=== PATIENT | female | born 1975 | race Caucasian/White ===

== ENCOUNTER → 2019-10-24 15:07 | Outpatient (BNVA) | payer MEDICARE, OTHER, SELFPAY | PROVIDERS: Family Provider Family Medicine; PCP Family Medicine; Visit Provider Nurse Practitioner | DX: M47.816 Spondylosis without myelopathy or radiculopathy, lumbar region (principal); E11.42 Type 2 diabetes mellitus with diabetic polyneuropathy; Z79.891 Long term (current) use of opiate analgesic | CPT/HCPCS: 99213; 99214 ==

== ENCOUNTER → 2019-10-28 08:44 | Outpatient (BNVA) | payer MEDICARE, OTHER, SELFPAY | PROVIDERS: Family Provider Family Medicine; PCP Family Medicine; Visit Provider Nurse Practitioner | DX: F43.12 Post-traumatic stress disorder, chronic (principal); F17.210 Nicotine dependence, cigarettes, uncomplicated | CPT/HCPCS: 99213 ==

== ENCOUNTER → 2019-11-19 09:51 | Outpatient (BNVA) | payer MEDICARE, OTHER, SELFPAY | PROVIDERS: Family Provider Family Medicine; PCP Family Medicine; Visit Provider Social Worker Clinical | DX: F43.12 Post-traumatic stress disorder, chronic (principal); F33.1 Major depressive disorder, recurrent, moderate | CPT/HCPCS: 90791 ==

== ENCOUNTER → 2019-12-04 08:55 | Outpatient (BNVA) | payer MEDICARE, OTHER, SELFPAY | PROVIDERS: Family Provider Family Medicine; PCP Family Medicine; Visit Provider Social Worker Clinical | DX: F43.12 Post-traumatic stress disorder, chronic (principal); F33.2 Major depressive disorder, recurrent severe without psychotic features; M47.816 Spondylosis without myelopathy or radiculopathy, lumbar region | CPT/HCPCS: 90834; 64635; 64636; 77003; J1030; J2001 ==

== ENCOUNTER → 2019-12-18 08:49 | Outpatient (BNVA) | payer MEDICARE, OTHER, SELFPAY | PROVIDERS: Family Provider Family Medicine; PCP Family Medicine; Visit Provider Social Worker Clinical | DX: F43.12 Post-traumatic stress disorder, chronic (principal); F33.1 Major depressive disorder, recurrent, moderate | CPT/HCPCS: 90834 ==

== ENCOUNTER → 2019-12-29 08:28 | Outpatient (BNVA) | payer MEDICARE, OTHER, SELFPAY | PROVIDERS: Family Provider Family Medicine; PCP Family Medicine; Visit Provider Social Worker Clinical | DX: F43.12 Post-traumatic stress disorder, chronic (principal); F33.2 Major depressive disorder, recurrent severe without psychotic features | CPT/HCPCS: 90834 ==

== ENCOUNTER → 2020-01-06 14:36 | Outpatient (BNVA) | payer MEDICARE, OTHER, SELFPAY | PROVIDERS: Family Provider Family Medicine; PCP Family Medicine; Visit Provider Nurse Practitioner | DX: G89.29 Other chronic pain (principal); M47.816 Spondylosis without myelopathy or radiculopathy, lumbar region; M54.10 Radiculopathy, site unspecified; Z79.891 Long term (current) use of opiate analgesic | CPT/HCPCS: 99214 ==

== ENCOUNTER 2020-01-19 06:00 | Outpatient (RCR) | payer MEDICARE, OTHER, SELFPAY | END 2020-02-12 23:59 | disposition home or self-care (01) | LOC: SPT 06:00 | PROVIDERS: Family Provider Family Medicine; PCP Family Medicine; Referring Provider Nurse Practitioner; Visit Provider Nurse Practitioner | DX: M54.9 Dorsalgia, unspecified (principal) | CPT/HCPCS: 97110; 97161; G0283 ==

== ENCOUNTER → 2020-01-20 08:22 | Outpatient (BNVA) | payer MEDICARE, OTHER, SELFPAY | PROVIDERS: Family Provider Family Medicine; PCP Family Medicine; Visit Provider Nurse Practitioner | DX: F43.12 Post-traumatic stress disorder, chronic (principal) | CPT/HCPCS: 99213 ==

== ENCOUNTER → 2020-01-28 10:07 | Outpatient (BNVA) | payer MEDICARE, OTHER, SELFPAY | PROVIDERS: Family Provider Family Medicine; PCP Family Medicine; Visit Provider Social Worker Clinical | DX: F43.12 Post-traumatic stress disorder, chronic (principal) | CPT/HCPCS: 90834 ==

== ENCOUNTER 2020-02-13 06:00 | Outpatient (RCR) | payer MEDICARE, OTHER, SELFPAY | END 2020-03-14 23:59 | disposition home or self-care (01) | LOC: SPT 06:00 | PROVIDERS: PCP Family Medicine; Referring Provider Nurse Practitioner; Visit Provider Nurse Practitioner | DX: M54.32 Sciatica, left side (principal); M54.9 Dorsalgia, unspecified | CPT/HCPCS: 97110 ==

== ENCOUNTER 2020-03-15 06:00 | Outpatient (RCR) | payer MEDICARE, OTHER, SELFPAY | END 2020-04-13 23:59 | disposition home or self-care (01) | LOC: SPT 06:00 | PROVIDERS: PCP Family Medicine; Visit Provider Nurse Practitioner | DX: M54.9 Dorsalgia, unspecified (principal) | CPT/HCPCS: 97110; 97113 ==

== ENCOUNTER → 2020-03-18 09:53 | Outpatient (BNVA) | payer MEDICARE, OTHER, SELFPAY | PROVIDERS: PCP Family Medicine; Visit Provider Family Medicine | DX: I10 Essential (primary) hypertension (principal); E78.2 Mixed hyperlipidemia; E11.42 Type 2 diabetes mellitus with diabetic polyneuropathy; E11.9 Type 2 diabetes mellitus without complications; G43.701 Chronic migraine without aura, not intractable, with status migrainosus | CPT/HCPCS: 80053; 80061; 82044; 83036; 85025 ==

== ENCOUNTER → 2020-04-02 11:25 | Outpatient (BNVA) | payer MEDICARE, OTHER, SELFPAY | PROVIDERS: PCP Family Medicine; Visit Provider Anesthesiology | DX: G89.29 Other chronic pain (principal); M54.42 Lumbago with sciatica, left side; M47.816 Spondylosis without myelopathy or radiculopathy, lumbar region; M54.10 Radiculopathy, site unspecified; M54.9 Dorsalgia, unspecified; Z79.891 Long term (current) use of opiate analgesic | CPT/HCPCS: 99213; 99214 ==

== ENCOUNTER 2020-04-14 06:00 | Outpatient (RCR) | payer MEDICARE, OTHER, SELFPAY | END 2020-05-14 23:59 | disposition home or self-care (01) | LOC: SPT 06:00 | PROVIDERS: PCP Family Medicine; Visit Provider Nurse Practitioner | DX: M54.9 Dorsalgia, unspecified (principal) | CPT/HCPCS: 97110 ==

== ENCOUNTER → 2020-04-21 07:29 | Outpatient (BNVA) | payer MEDICARE, OTHER, SELFPAY | PROVIDERS: PCP Family Medicine; Visit Provider Nurse Practitioner | DX: F43.12 Post-traumatic stress disorder, chronic (principal); F41.1 Generalized anxiety disorder | CPT/HCPCS: 99214 ==

== ENCOUNTER 2020-05-20 13:22 | Outpatient (CLI) | payer MEDICARE, OTHER, SELFPAY ==
--- NOTE | 2020-05-20 13:30 | XR_ITS ---
WS: [id number] HIP WITH PELVIS RIGHT TECHNIQUE: 3 views of the right hip with pelvis CLINICAL INFORMATION: acute right hip pain COMPARISON: None. FINDINGS: Right hip is normal in appearance. No acute fractures. Normal right pubic rami. XR/XR hip RT 2-3V wo/w pel* [id number] IMPRESSION: Normal right hip
--- NOTE | 2020-05-20 14:14 | MM_ITS ---
WS: [id number] SCREENING DIGITAL MAMMOGRAM WITH CAD HISTORY: SCREENING COMPARISON: 12/30/2018 and 03/05/2018 Bilateral CC and MLO views submitted. Computer aided detection analyzed. Breast composition: There are scattered areas of fibroglandular density. No suspicious masses, microc alcifications or architectural distortion. MM/[place] [id number] IMPRESSION: BI-RADS: 1-Negative FOLLOW UP: 1 Year Follow-up
== END 2020-05-20 13:23 | disposition home or self-care (01) ==
LOC: RADSHAW 13:27
PROVIDERS: PCP Family Medicine; Visit Provider Family Medicine
DX: Z12.31 Encounter for screening mammogram for malignant neoplasm of breast (principal); M25.551 Pain in right hip; E11.42 Type 2 diabetes mellitus with diabetic polyneuropathy
CPT/HCPCS: 73502; 77067; 80053

== ENCOUNTER → 2020-06-16 07:48 | Outpatient (BNVA) | payer MEDICARE, OTHER, SELFPAY | PROVIDERS: PCP Family Medicine; Visit Provider Nurse Practitioner | DX: F43.12 Post-traumatic stress disorder, chronic (principal); F70 Mild intellectual disabilities | CPT/HCPCS: 99213 ==

== ENCOUNTER → 2020-06-22 08:46 | Outpatient (BNVA) | payer MEDICARE, OTHER, SELFPAY | PROVIDERS: PCP Family Medicine; Visit Provider Nurse Practitioner | DX: G89.29 Other chronic pain (principal); M54.41 Lumbago with sciatica, right side; M54.42 Lumbago with sciatica, left side; M54.10 Radiculopathy, site unspecified; M54.9 Dorsalgia, unspecified; Z79.891 Long term (current) use of opiate analgesic | CPT/HCPCS: 99213 ==

== ENCOUNTER → 2020-06-24 14:17 | Outpatient (BNVA) | payer MEDICARE, OTHER, SELFPAY | PROVIDERS: PCP Family Medicine; Referring Provider Family Medicine; Visit Provider Specialist | DX: G43.701 Chronic migraine without aura, not intractable, with status migrainosus (principal) | CPT/HCPCS: G0463 ==

== ENCOUNTER → 2020-08-18 07:34 | Outpatient (BNVA) | payer MEDICARE, OTHER, SELFPAY | PROVIDERS: PCP Family Medicine; Visit Provider Nurse Practitioner | DX: F43.12 Post-traumatic stress disorder, chronic (principal) | CPT/HCPCS: 99213 ==

== ENCOUNTER → 2020-08-24 10:03 | Outpatient (BNVA) | payer MEDICARE, OTHER, SELFPAY | PROVIDERS: PCP Family Medicine; Visit Provider Family Medicine | DX: E11.42 Type 2 diabetes mellitus with diabetic polyneuropathy (principal) | CPT/HCPCS: 80053; 83036; 85025 ==

== ENCOUNTER → 2020-08-25 09:18 | Outpatient (BNVA) | payer MEDICARE, OTHER, SELFPAY | PROVIDERS: PCP Family Medicine; Visit Provider Specialist | DX: G43.711 Chronic migraine without aura, intractable, with status migrainosus (principal); Z87.891 Personal history of nicotine dependence | CPT/HCPCS: 99204 ==

== ENCOUNTER 2020-09-01 13:39 | Outpatient (CLI) | payer MEDICARE, OTHER, SELFPAY ==
--- NOTE | 2020-09-01 13:48 | MR_ITS ---
WS: [id number] MRI HEAD WITHOUT CONTRAST TECHNIQUE: Sagittal T1, T2 axial, T2 axial FLAIR, axial and coronal T1 images, axial susceptibility w eighted imaging, axial diffusion weighted images, and coronal T2 images were obtained. CLINICAL INFORMATION: CHRONIC MIGRAINE WITHOUT AURA COMPARISON: MRI 4 13,015 FINDINGS: Images moderately degraded by motion artifact. No restricted diffusion to suggest acute ischemia. Ventricular system and basal cisterns are patent. A few small foci of T2 hyperintensity in the supratentorial white matter nonspecific in a patient thi s age but can be seen with migraine headaches. Mild parenchymal volume loss. Normal vascular flow voids at the skull base. No extra-axial fluid collections. Mild mucosal thickeni ng paranasal sinuses. Mastoid air cells are well aerated. No hemosiderin on susceptibly weighted imag es. Mild symmetric atrophy involving the temporal lobes and hippocampal formations. Normal optic jodi sm and pituitary infundibulum. No other significant findings. MR/MR head wo con* [id number] IMPRESSION: 1. Some images degraded by patient motion. 2. No restricted diffusion to suggest acute ischemia. 3. A few 2-3 small foci of T2 hyperintensity in the subcortical and periventri cular white matter nonspecific but can be seen with migraine headaches. This is of doubtful clinical significance. 4. Mild parenchymal volume loss. 5. Paranasal sinuses and mastoid air cells are well aerated. 6. No hemosiderin on susceptibly weighted images. 7. Mild symmetric atrophy involving the temporal lobes and hippocampal formati ons.
== END 2020-09-01 13:40 | disposition home or self-care (01) ==
LOC: RADWPI 13:47
PROVIDERS: PCP Family Medicine; Visit Provider Specialist
DX: G43.711 Chronic migraine without aura, intractable, with status migrainosus (principal); G31.9 Degenerative disease of nervous system, unspecified
CPT/HCPCS: 70551

== ENCOUNTER → 2020-09-13 08:29 | Outpatient (BNVA) | payer MEDICARE, OTHER, SELFPAY | PROVIDERS: PCP Family Medicine; Visit Provider Social Worker Clinical | DX: F43.12 Post-traumatic stress disorder, chronic (principal) | CPT/HCPCS: 90834 ==

== ENCOUNTER → 2020-09-14 08:56 | Outpatient (BNVA) | payer MEDICARE, OTHER, SELFPAY | PROVIDERS: PCP Family Medicine; Visit Provider Nurse Practitioner | DX: G89.29 Other chronic pain (principal); M47.816 Spondylosis without myelopathy or radiculopathy, lumbar region; M54.9 Dorsalgia, unspecified; M54.42 Lumbago with sciatica, left side; M54.41 Lumbago with sciatica, right side; M54.10 Radiculopathy, site unspecified; G43.701 Chronic migraine without aura, not intractable, with status migrainosus; Z79.891 Long term (current) use of opiate analgesic | CPT/HCPCS: 99213 ==

== ENCOUNTER → 2020-09-30 08:12 | Outpatient (BNVA) | payer MEDICARE, OTHER, SELFPAY | PROVIDERS: PCP Family Medicine; Visit Provider Social Worker Clinical | DX: F43.12 Post-traumatic stress disorder, chronic (principal) | CPT/HCPCS: 90834 ==

== ENCOUNTER → 2020-10-19 10:22 | Outpatient (BNVA) | payer MEDICARE, OTHER, SELFPAY | PROVIDERS: PCP Family Medicine; Visit Provider Family Medicine | DX: N28.9 Disorder of kidney and ureter, unspecified (principal) | CPT/HCPCS: 80048 ==

== ENCOUNTER → 2020-10-28 08:19 | Outpatient (BNVA) | payer MEDICARE, OTHER, SELFPAY | PROVIDERS: PCP Family Medicine; Visit Provider Social Worker Clinical | DX: F43.12 Post-traumatic stress disorder, chronic (principal) | CPT/HCPCS: 90834 ==

== ENCOUNTER → 2020-11-11 08:28 | Outpatient (BNVA) | payer MEDICARE, OTHER, SELFPAY | PROVIDERS: PCP Family Medicine; Visit Provider Social Worker Clinical | DX: F43.12 Post-traumatic stress disorder, chronic (principal) | CPT/HCPCS: 90834 ==

== ENCOUNTER → 2020-11-17 07:58 | Outpatient (BNVA) | payer MEDICARE, OTHER, SELFPAY | PROVIDERS: PCP Family Medicine; Visit Provider Nurse Practitioner | DX: F43.12 Post-traumatic stress disorder, chronic (principal); F17.211 Nicotine dependence, cigarettes, in remission | CPT/HCPCS: 99214 ==

== ENCOUNTER → 2020-12-03 08:54 | Outpatient (BNVA) | payer MEDICARE, OTHER, SELFPAY | PROVIDERS: PCP Family Medicine; Visit Provider Nurse Practitioner | DX: G89.29 Other chronic pain (principal); M47.816 Spondylosis without myelopathy or radiculopathy, lumbar region; M54.9 Dorsalgia, unspecified; M79.7 Fibromyalgia; G57.93 Unspecified mononeuropathy of bilateral lower limbs; G43.701 Chronic migraine without aura, not intractable, with status migrainosus; F17.211 Nicotine dependence, cigarettes, in remission; Z79.891 Long term (current) use of opiate analgesic; Z71.6 Tobacco abuse counseling | CPT/HCPCS: 99213 ==

== ENCOUNTER → 2020-12-13 13:41 | Outpatient (BNVA) | payer MEDICARE, OTHER, SELFPAY | PROVIDERS: PCP Family Medicine; Visit Provider Anesthesiology Pain Medicine | DX: G89.29 Other chronic pain (principal); M47.816 Spondylosis without myelopathy or radiculopathy, lumbar region; M54.9 Dorsalgia, unspecified; E11.42 Type 2 diabetes mellitus with diabetic polyneuropathy | CPT/HCPCS: 64635; 64636; J1030 ==

== ENCOUNTER → 2020-12-14 08:32 | Outpatient (BNVA) | payer MEDICARE, OTHER, SELFPAY | PROVIDERS: PCP Family Medicine; Visit Provider Social Worker Clinical | DX: F43.12 Post-traumatic stress disorder, chronic (principal) | CPT/HCPCS: 90832 ==

== ENCOUNTER → 2020-12-30 10:50 | Outpatient (BNVA) | payer MEDICARE, OTHER, SELFPAY | PROVIDERS: PCP Family Medicine; Visit Provider Nurse Practitioner | DX: G89.29 Other chronic pain (principal); M47.816 Spondylosis without myelopathy or radiculopathy, lumbar region; M54.9 Dorsalgia, unspecified; M79.7 Fibromyalgia; G57.93 Unspecified mononeuropathy of bilateral lower limbs; M70.62 Trochanteric bursitis, left hip; Y93.9 Activity, unspecified; F17.211 Nicotine dependence, cigarettes, in remission; Z79.891 Long term (current) use of opiate analgesic | CPT/HCPCS: 99214 ==

== ENCOUNTER → 2020-12-31 08:50 | Outpatient (BNVA) | payer MEDICARE, OTHER, SELFPAY | PROVIDERS: PCP Family Medicine; Visit Provider Social Worker Clinical | DX: F43.12 Post-traumatic stress disorder, chronic (principal); F33.2 Major depressive disorder, recurrent severe without psychotic features | CPT/HCPCS: 90834 ==

== ENCOUNTER → 2021-01-18 08:56 | Outpatient (BNVA) | payer MEDICARE, OTHER, SELFPAY | PROVIDERS: PCP Family Medicine; Visit Provider Social Worker Clinical | DX: F43.12 Post-traumatic stress disorder, chronic (principal) | CPT/HCPCS: 90834 ==

== ENCOUNTER → 2021-01-19 09:42 | Outpatient (BNVA) | payer MEDICARE, OTHER, SELFPAY | PROVIDERS: PCP Family Medicine; Visit Provider Nurse Practitioner | DX: F43.12 Post-traumatic stress disorder, chronic (principal) | CPT/HCPCS: 99214 ==

== ENCOUNTER → 2021-02-03 08:58 | Outpatient (BNVA) | payer MEDICARE, OTHER, SELFPAY | PROVIDERS: PCP Family Medicine; Visit Provider Anesthesiology | DX: M70.62 Trochanteric bursitis, left hip (principal); Y93.9 Activity, unspecified | CPT/HCPCS: 20610; 77002; J1030; J3490 ==

== ENCOUNTER → 2021-02-14 08:46 | Outpatient (BNVA) | payer MEDICARE, OTHER, SELFPAY | PROVIDERS: PCP Family Medicine; Visit Provider Social Worker Clinical | DX: F43.12 Post-traumatic stress disorder, chronic (principal) | CPT/HCPCS: 90834 ==

== ENCOUNTER → 2021-02-21 10:17 | Outpatient (BNVA) | payer MEDICARE, OTHER, SELFPAY | PROVIDERS: PCP Family Medicine; Visit Provider Family Medicine | DX: E11.42 Type 2 diabetes mellitus with diabetic polyneuropathy (principal); E78.2 Mixed hyperlipidemia; R10.13 Epigastric pain; I10 Essential (primary) hypertension | CPT/HCPCS: 80053; 80061; 81015; 82043; 83036 ==

== ENCOUNTER → 2021-03-02 08:03 | Outpatient (BNVA) | payer MEDICARE, OTHER, SELFPAY | PROVIDERS: PCP Family Medicine; Visit Provider Social Worker Clinical | DX: F43.12 Post-traumatic stress disorder, chronic (principal) | CPT/HCPCS: 90834 ==

== ENCOUNTER → 2021-03-08 09:55 | Outpatient (BNVA) | payer MEDICARE, OTHER, SELFPAY | PROVIDERS: PCP Family Medicine; Visit Provider Specialist | DX: G43.701 Chronic migraine without aura, not intractable, with status migrainosus (principal); S51.859A Open bite of unspecified forearm, initial encounter; W55.01XA Bitten by cat, initial encounter; Z87.891 Personal history of nicotine dependence | CPT/HCPCS: 99214 ==

== ENCOUNTER → 2021-03-18 08:55 | Outpatient (BNVA) | payer MEDICARE, OTHER, SELFPAY | PROVIDERS: PCP Family Medicine; Visit Provider Social Worker Clinical | DX: F43.12 Post-traumatic stress disorder, chronic (principal) | CPT/HCPCS: 90834 ==

== ENCOUNTER → 2021-03-23 09:12 | Outpatient (BNVA) | payer MEDICARE, OTHER, SELFPAY | PROVIDERS: PCP Family Medicine; Visit Provider Nurse Practitioner | DX: F43.12 Post-traumatic stress disorder, chronic (principal) | CPT/HCPCS: 99214 ==

== ENCOUNTER → 2021-03-29 08:01 | Outpatient (BNVA) | payer MEDICARE, OTHER, SELFPAY | PROVIDERS: PCP Family Medicine; Visit Provider Anesthesiology | DX: G89.29 Other chronic pain (principal); M47.816 Spondylosis without myelopathy or radiculopathy, lumbar region; M54.9 Dorsalgia, unspecified; F17.211 Nicotine dependence, cigarettes, in remission; Z79.891 Long term (current) use of opiate analgesic; Z79.1 Long term (current) use of non-steroidal anti-inflammatories (NSAID) | CPT/HCPCS: 99213 ==

== ENCOUNTER → 2021-04-11 11:49 | Outpatient (BNVA) | payer MEDICARE, OTHER, SELFPAY | PROVIDERS: PCP Family Medicine; Visit Provider Social Worker Clinical | DX: F43.12 Post-traumatic stress disorder, chronic (principal) | CPT/HCPCS: 90834 ==

== ENCOUNTER → 2021-04-27 10:55 | Outpatient (BNVA) | payer MEDICARE, OTHER, SELFPAY | PROVIDERS: PCP Family Medicine; Visit Provider Nurse Practitioner Family | DX: Z20.822 Contact with and (suspected) exposure to COVID-19 (principal) | CPT/HCPCS: 87635 ==

== ENCOUNTER → 2021-04-28 10:06 | Outpatient (BNVA) | payer MEDICARE, OTHER, SELFPAY | PROVIDERS: PCP Family Medicine; Visit Provider Social Worker Clinical | DX: F43.12 Post-traumatic stress disorder, chronic (principal) | CPT/HCPCS: 90832 ==

== ENCOUNTER → 2021-05-13 08:04 | Outpatient (BNVA) | payer MEDICARE, OTHER, SELFPAY | PROVIDERS: PCP Family Medicine; Visit Provider Social Worker Clinical | DX: F43.12 Post-traumatic stress disorder, chronic (principal) | CPT/HCPCS: 90834 ==

== ENCOUNTER 2021-05-23 07:09 | Outpatient (CLI) | payer MEDICARE, OTHER, SELFPAY ==
--- NOTE | 2021-05-23 07:18 | MM_ITS ---
WS: [id number] SCREENING DIGITAL MAMMOGRAM WITH CAD HISTORY: SCREENING COMPARISON: 05/20/2020 and 12/19/2017 Bilateral CC and MLO views submitted. Computer aided detection analyzed. Breast composition: There are scattered areas of fibroglandular density. No suspicious masses, microc alcifications or architectural distortion. MM/[place] [id number] IMPRESSION: BI-RADS: 1-Negative FOLLOW UP: 1 Year Follow-up
== END 2021-05-23 07:10 | disposition home or self-care (01) ==
LOC: RADSHAW 07:14
PROVIDERS: PCP Family Medicine; Visit Provider Family Medicine
DX: Z12.31 Encounter for screening mammogram for malignant neoplasm of breast (principal)
CPT/HCPCS: 77067

== ENCOUNTER → 2021-05-25 07:10 | Outpatient (BNVA) | payer MEDICARE, OTHER, SELFPAY | PROVIDERS: PCP Family Medicine; Visit Provider Nurse Practitioner | DX: F43.12 Post-traumatic stress disorder, chronic (principal) | CPT/HCPCS: 99214 ==

== ENCOUNTER → 2021-05-26 10:44 | Outpatient (BNVA) | payer MEDICARE, OTHER, SELFPAY | PROVIDERS: PCP Family Medicine; Visit Provider Social Worker Clinical | DX: F43.12 Post-traumatic stress disorder, chronic (principal) | CPT/HCPCS: 90834 ==

== ENCOUNTER → 2021-06-14 08:47 | Outpatient (BNVA) | payer MEDICARE, OTHER, SELFPAY | PROVIDERS: PCP Family Medicine; Visit Provider Social Worker Clinical | DX: F43.12 Post-traumatic stress disorder, chronic (principal) | CPT/HCPCS: 90834 ==

== ENCOUNTER → 2021-06-21 08:33 | Outpatient (BNVA) | payer MEDICARE, OTHER, SELFPAY | PROVIDERS: PCP Family Medicine; Visit Provider Nurse Practitioner | DX: G89.29 Other chronic pain (principal); M47.816 Spondylosis without myelopathy or radiculopathy, lumbar region; M79.7 Fibromyalgia; M25.552 Pain in left hip; G57.93 Unspecified mononeuropathy of bilateral lower limbs; E11.42 Type 2 diabetes mellitus with diabetic polyneuropathy; F17.211 Nicotine dependence, cigarettes, in remission; Z79.891 Long term (current) use of opiate analgesic | CPT/HCPCS: 99213 ==

== ENCOUNTER → 2021-06-23 07:58 | Outpatient (BNVA) | payer MEDICARE, OTHER, SELFPAY | PROVIDERS: PCP Family Medicine; Visit Provider Social Worker Clinical | DX: F43.12 Post-traumatic stress disorder, chronic (principal) | CPT/HCPCS: 90834 ==

== ENCOUNTER → 2021-07-06 09:02 | Outpatient (BNVA) | payer MEDICARE, OTHER, SELFPAY | PROVIDERS: PCP Family Medicine; Visit Provider Social Worker Clinical | DX: F43.12 Post-traumatic stress disorder, chronic (principal) | CPT/HCPCS: 90834 ==

== ENCOUNTER → 2021-07-25 08:51 | Outpatient (BNVA) | payer MEDICARE, OTHER, SELFPAY | PROVIDERS: PCP Family Medicine; Visit Provider Social Worker Clinical | DX: F43.12 Post-traumatic stress disorder, chronic (principal) | CPT/HCPCS: 90834 ==

== ENCOUNTER → 2021-08-08 08:15 | Outpatient (BNVA) | payer MEDICARE, OTHER, SELFPAY | PROVIDERS: PCP Family Medicine; Visit Provider Social Worker Clinical | DX: F43.12 Post-traumatic stress disorder, chronic (principal) | CPT/HCPCS: 90834 ==

== ENCOUNTER → 2021-08-09 10:27 | Outpatient (BNVA) | payer MEDICARE, OTHER, SELFPAY | PROVIDERS: PCP Family Medicine; Visit Provider Family Medicine | DX: L65.9 Nonscarring hair loss, unspecified (principal) | CPT/HCPCS: 84443 ==

== ENCOUNTER → 2021-08-23 08:37 | Outpatient (BNVA) | payer MEDICARE, OTHER, SELFPAY | PROVIDERS: PCP Family Medicine; Visit Provider Social Worker Clinical | DX: F43.12 Post-traumatic stress disorder, chronic (principal) | CPT/HCPCS: 90834 ==

== ENCOUNTER → 2021-08-24 07:22 | Outpatient (BNVA) | payer MEDICARE, OTHER, SELFPAY | PROVIDERS: PCP Family Medicine; Visit Provider Nurse Practitioner | DX: F43.12 Post-traumatic stress disorder, chronic (principal) | CPT/HCPCS: 99214 ==

== ENCOUNTER → 2021-09-21 08:51 | Outpatient (BNVA) | payer MEDICARE, OTHER, SELFPAY | PROVIDERS: PCP Family Medicine; Visit Provider Social Worker Clinical | DX: F43.12 Post-traumatic stress disorder, chronic (principal); F33.1 Major depressive disorder, recurrent, moderate | CPT/HCPCS: 90791 ==

== ENCOUNTER → 2021-10-19 09:57 | Outpatient (BNVA) | payer MEDICARE, OTHER, SELFPAY | PROVIDERS: PCP Family Medicine; Visit Provider Social Worker Clinical | DX: F43.12 Post-traumatic stress disorder, chronic (principal) | CPT/HCPCS: 90834 ==

== ENCOUNTER → 2021-11-02 13:06 | Outpatient (BNVA) | payer MEDICARE, OTHER, SELFPAY | PROVIDERS: PCP Family Medicine; Visit Provider Anesthesiology | DX: G89.29 Other chronic pain (principal); M47.816 Spondylosis without myelopathy or radiculopathy, lumbar region; G43.711 Chronic migraine without aura, intractable, with status migrainosus; F17.211 Nicotine dependence, cigarettes, in remission; Z79.1 Long term (current) use of non-steroidal anti-inflammatories (NSAID) | CPT/HCPCS: 99213 ==

== ENCOUNTER → 2021-11-04 07:12 | Outpatient (BNVA) | payer MEDICARE, OTHER, SELFPAY | PROVIDERS: PCP Family Medicine; Visit Provider Social Worker Clinical | DX: F43.12 Post-traumatic stress disorder, chronic (principal) | CPT/HCPCS: 90834 ==

== ENCOUNTER → 2021-11-07 09:30 | Outpatient (BNVA) | payer MEDICARE, OTHER, SELFPAY | PROVIDERS: PCP Family Medicine; Visit Provider Family Medicine | DX: E78.2 Mixed hyperlipidemia (principal); E11.42 Type 2 diabetes mellitus with diabetic polyneuropathy; I10 Essential (primary) hypertension | CPT/HCPCS: 80053; 80061; 85025 ==

== ENCOUNTER → 2021-11-08 13:14 | Outpatient (BNVA) | payer MEDICARE, OTHER, SELFPAY | PROVIDERS: PCP Family Medicine; Visit Provider Anesthesiology Pain Medicine | DX: G89.29 Other chronic pain (principal); Z87.891 Personal history of nicotine dependence | CPT/HCPCS: 64635; 64636; J1030 ==

== ENCOUNTER → 2021-11-15 11:39 | Outpatient (BNVA) | payer MEDICARE, OTHER, SELFPAY | PROVIDERS: PCP Family Medicine; Visit Provider Family Medicine | DX: E11.42 Type 2 diabetes mellitus with diabetic polyneuropathy (principal); I10 Essential (primary) hypertension | CPT/HCPCS: 83036; 85025 ==

== ENCOUNTER → 2021-11-16 06:59 | Outpatient (BNVA) | payer MEDICARE, OTHER, SELFPAY | PROVIDERS: PCP Family Medicine; Visit Provider Nurse Practitioner | DX: F43.12 Post-traumatic stress disorder, chronic (principal) | CPT/HCPCS: 99214 ==

== ENCOUNTER → 2021-11-22 08:48 | Outpatient (BNVA) | payer MEDICARE, OTHER, SELFPAY | PROVIDERS: PCP Family Medicine; Visit Provider Social Worker Clinical | DX: F43.12 Post-traumatic stress disorder, chronic (principal) | CPT/HCPCS: 90834 ==

== ENCOUNTER → 2021-12-21 08:59 | Outpatient (BNVA) | payer MEDICARE, OTHER, SELFPAY | PROVIDERS: PCP Family Medicine; Visit Provider Social Worker Clinical | DX: F43.12 Post-traumatic stress disorder, chronic (principal) | CPT/HCPCS: 90834 ==

== ENCOUNTER → 2022-01-10 11:30 | Outpatient (BNVA) | payer MEDICARE, OTHER, SELFPAY | PROVIDERS: PCP Family Medicine; Visit Provider Internal Medicine Cardiovascular Disease | DX: R06.02 Shortness of breath (principal); I10 Essential (primary) hypertension; G47.33 Obstructive sleep apnea (adult) (pediatric); E78.2 Mixed hyperlipidemia; Z87.891 Personal history of nicotine dependence | CPT/HCPCS: 99214 ==

== ENCOUNTER → 2022-01-11 07:31 | Outpatient (BNVA) | payer MEDICARE, OTHER, SELFPAY | PROVIDERS: PCP Family Medicine; Visit Provider Nurse Practitioner | DX: F43.12 Post-traumatic stress disorder, chronic (principal) | CPT/HCPCS: 99214 ==

== ENCOUNTER → 2022-01-13 09:56 | Outpatient (BNVA) | payer MEDICARE, OTHER, SELFPAY | PROVIDERS: PCP Family Medicine; Visit Provider Social Worker Clinical | DX: F43.12 Post-traumatic stress disorder, chronic (principal) | CPT/HCPCS: 90834 ==

== ENCOUNTER → 2022-01-23 07:45 | Outpatient (BNVA) | payer MEDICARE, OTHER, SELFPAY | PROVIDERS: PCP Family Medicine; Visit Provider Social Worker Clinical | DX: F43.12 Post-traumatic stress disorder, chronic (principal) | CPT/HCPCS: 90834 ==

== ENCOUNTER → 2022-02-01 12:52 | Outpatient (BNVA) | payer MEDICARE, OTHER, SELFPAY | PROVIDERS: PCP Family Medicine; Visit Provider Social Worker Clinical | DX: F43.12 Post-traumatic stress disorder, chronic (principal) | CPT/HCPCS: 90834 ==

== ENCOUNTER → 2022-02-08 11:40 | Outpatient (BNVA) | payer MEDICARE, OTHER, SELFPAY | PROVIDERS: PCP Family Medicine; Visit Provider Social Worker Clinical | DX: F43.12 Post-traumatic stress disorder, chronic (principal) | CPT/HCPCS: 90834 ==

== ENCOUNTER → 2022-02-15 08:48 | Outpatient (BNVA) | payer MEDICARE, OTHER, SELFPAY | PROVIDERS: PCP Family Medicine; Visit Provider Social Worker Clinical | DX: F43.12 Post-traumatic stress disorder, chronic (principal) | CPT/HCPCS: 90834 ==

== ENCOUNTER → 2022-02-22 09:42 | Outpatient (BNVA) | payer MEDICARE, OTHER, SELFPAY | PROVIDERS: PCP Family Medicine; Visit Provider Social Worker Clinical | DX: F43.12 Post-traumatic stress disorder, chronic (principal) | CPT/HCPCS: 90834 ==

== ENCOUNTER → 2022-03-01 09:47 | Outpatient (BNVA) | payer MEDICARE, OTHER, SELFPAY | PROVIDERS: PCP Family Medicine; Visit Provider Social Worker Clinical | DX: F43.12 Post-traumatic stress disorder, chronic (principal) | CPT/HCPCS: 90834 ==

== ENCOUNTER → 2022-03-07 10:41 | Outpatient (BNVA) | payer MEDICARE, OTHER, SELFPAY | PROVIDERS: PCP Family Medicine; Visit Provider Specialist | DX: G43.701 Chronic migraine without aura, not intractable, with status migrainosus (principal); F43.12 Post-traumatic stress disorder, chronic | CPT/HCPCS: 96372; 99214; J1885; J2405 ==

== ENCOUNTER → 2022-03-22 08:41 | Outpatient (BNVA) | payer MEDICARE, OTHER, SELFPAY | PROVIDERS: PCP Family Medicine; Visit Provider Social Worker Clinical | DX: F43.12 Post-traumatic stress disorder, chronic (principal) | CPT/HCPCS: 90834 ==

== ENCOUNTER → 2022-03-30 09:50 | Outpatient (BNVA) | payer MEDICARE, OTHER, SELFPAY | PROVIDERS: PCP Family Medicine; Visit Provider Social Worker Clinical | DX: F43.12 Post-traumatic stress disorder, chronic (principal) | CPT/HCPCS: 90834 ==

== ENCOUNTER → 2022-04-03 07:16 | Outpatient (BNVA) | payer MEDICARE, OTHER, SELFPAY | PROVIDERS: PCP Family Medicine; Visit Provider Nurse Practitioner | DX: F43.12 Post-traumatic stress disorder, chronic (principal) | CPT/HCPCS: 99214 ==

== ENCOUNTER → 2022-04-12 09:44 | Outpatient (BNVA) | payer MEDICARE, OTHER, SELFPAY | PROVIDERS: PCP Family Medicine; Visit Provider Social Worker Clinical | DX: F43.12 Post-traumatic stress disorder, chronic (principal) | CPT/HCPCS: 90834 ==

== ENCOUNTER 2022-05-19 11:14 | Outpatient (CLI) | payer MEDICARE, OTHER, SELFPAY ==
[2022-05-19 12:14] LABS: Estmated Average Glucose 143; Hemoglobin A1C 6.6 % (4.0-6.0)
[2022-05-19 12:39] LABS: Alanine Aminotransferase 20 U/L (0-33); Albumin Level 4.6 g/dL (3.5-5.2); Alkaline Phosphatase 88 IU/L (35-105); Blood Urea Nitrogen 11 mg/dL (6-20); Calcium 9.2 mg/dL (8.5-10.5); Carbon Dioxide 25 mmol/L (22-29); Chloride 105 mmol/L (98-107); Glomerular Filtration Rate 66.5 mL/min (90-130); Glucose 107 mg/dL (65-115); Osmolality Calculated 294 mOsm/kg (285-295); Sodium 142 mmol/L (136-145); Total Bilirubin 0.4 mg/dL (0.15-1.2); Total Protein 7.6 g/dL (6.6-8.7)
[2022-05-19 12:40] LABS: Anion Gap 16.1 (5-19); Aspartate Amino Transferase 21 U/L (0-32); Potassium 4.1 mmol/L (3.5-5.1)
== END 2022-05-19 11:15 | disposition home or self-care (01) ==
PROVIDERS: PCP Family Medicine; Visit Provider Family Medicine
DX: I10 Essential (primary) hypertension (principal); E11.42 Type 2 diabetes mellitus with diabetic polyneuropathy
CPT/HCPCS: 36415; 80053; 83036

== ENCOUNTER → 2022-06-06 10:02 | Outpatient (BNVA) | payer MEDICARE, OTHER, SELFPAY | PROVIDERS: PCP Family Medicine; Visit Provider Specialist | DX: G43.701 Chronic migraine without aura, not intractable, with status migrainosus (principal) | CPT/HCPCS: 99213; 99214 ==

== ENCOUNTER → 2022-08-16 09:49 | Outpatient (BNVA) | payer MEDICARE, OTHER, SELFPAY | PROVIDERS: PCP Family Medicine; Visit Provider Specialist | DX: G43.711 Chronic migraine without aura, intractable, with status migrainosus (principal) | CPT/HCPCS: 64615; J0585 ==

== ENCOUNTER → 2022-08-23 11:29 | Outpatient (BNVA) | payer MEDICARE, OTHER, SELFPAY | PROVIDERS: PCP Family Medicine; Visit Provider Anesthesiology Pain Medicine | DX: M54.9 Dorsalgia, unspecified (principal); G89.29 Other chronic pain; M51.16 Intervertebral disc disorders with radiculopathy, lumbar region; M47.816 Spondylosis without myelopathy or radiculopathy, lumbar region; M79.604 Pain in right leg; M79.605 Pain in left leg | CPT/HCPCS: 72110; 99204 ==

== ENCOUNTER 2022-08-31 11:25 | Outpatient (CLI) | payer MEDICARE, OTHER, SELFPAY ==
--- NOTE | 2022-08-31 11:38 | MM_ITS ---
WS: [id number] BILATERAL SCREENING DIGITAL TOMOSYNTHESIS MAMMOGRAM WITH CAD HISTORY: screening mammogram COMPARISON: 05/23/2021 and 05/20/2020 Bilateral CC and MLO views with tomosynthesis and synthetic mammography submitted. Computer aided det ection analyzed. Breast composition: There are scattered areas of fibroglandular density. No suspicious masses, microc alcifications or architectural distortion. MM/[place] [id number] IMPRESSION: BI-RADS: 1-Negative FOLLOW UP: 1 Year Follow-up
== END 2022-08-31 11:26 | disposition home or self-care (01) ==
LOC: RAD 11:26
PROVIDERS: PCP Family Medicine; Visit Provider Family Medicine
DX: Z12.31 Encounter for screening mammogram for malignant neoplasm of breast (principal)
CPT/HCPCS: 77063; 77067

== ENCOUNTER 2022-10-31 09:39 | Outpatient (CLI) | payer MEDICARE, SELFPAY ==
--- NOTE | 2022-10-31 09:30 | MR_ITS ---
WS: [id number] MRI LUMBAR SPINE NONCONTRAST TECHNIQUE: Sagittal T1, T2 and STIR imaging. Axial T1 and T2 imaging. CLINICAL INFORMATION: M54.9 - Dorsalgia, unspecified COMPARISON: MRI 2018 FINDINGS: Counting performed from the craniocervical junction. L5 is partially sacralized with residual disc sp kathy at this level. Mild lumbar curve. No acute compression. No high-grade central canal stenosis. L1-L2: Normal L2-L3: Mild facet arthropathy. Spinal canal and foramen are patent. L3-L4: Minimal annular bulging. Mild facet arthropathy. Spinal canal and foramen are patent. L4-L5: Mild annular bulging with slight impingement on the RIGHT greater than LEFT traversing L5 nerv e roots. Moderate facet arthropathy. Mild RIGHT foraminal narrowing. L5-S1: No significant disc bulging. Spinal canal and foramen are patent. L5 is partially sacralized. . Visualized pelvic bony structures: Normal. Paravertebral soft tissues: Normal. MR/MR lumbar spine wo con* [id number] IMPRESSION: 1. Counting performed from the craniocervical junction. L5 is partially sacral ized with residual disc space at this level. 2. Mild annular bulging L4-L5 with slight impingement on the RIGHT subarticula r recess and traversing RIGHT L5 nerve root. This appears unchanged from previo us. Mild RIGHT L4-L5 foraminal narrowing. 3. Moderate facet arthropathy L4-L5. 4. No other remarkable findings and no significant changes compared to previou s.
== END 2022-10-31 09:40 | disposition home or self-care (01) ==
PROVIDERS: PCP Family Medicine; Visit Provider Anesthesiology Pain Medicine
DX: G89.29 Other chronic pain; M47.816 Spondylosis without myelopathy or radiculopathy, lumbar region; M51.36 Other intervertebral disc degeneration, lumbar region
CPT/HCPCS: 72148

== ENCOUNTER → 2022-11-02 10:57 | Outpatient (BNVA) | payer MEDICARE, SELFPAY | PROVIDERS: PCP Family Medicine; Visit Provider Anesthesiology Pain Medicine | DX: G89.29 Other chronic pain (principal); M51.16 Intervertebral disc disorders with radiculopathy, lumbar region; M47.816 Spondylosis without myelopathy or radiculopathy, lumbar region; M79.605 Pain in left leg | CPT/HCPCS: 99214 ==

== ENCOUNTER → 2022-12-01 10:20 | Outpatient (BNVA) | payer MEDICARE, SELFPAY | PROVIDERS: PCP Family Medicine; Visit Provider Family Medicine | DX: I10 Essential (primary) hypertension (principal); E78.2 Mixed hyperlipidemia; E11.42 Type 2 diabetes mellitus with diabetic polyneuropathy; E11.9 Type 2 diabetes mellitus without complications | CPT/HCPCS: 80053; 80061; 82043; 83036; 85025 ==

== ENCOUNTER → 2023-03-15 12:39 | Outpatient (BNVA) | payer MEDICARE, SELFPAY | PROVIDERS: PCP Family Medicine; Visit Provider Specialist | DX: G43.701 Chronic migraine without aura, not intractable, with status migrainosus (principal) | CPT/HCPCS: 64615; J0585 ==

== ENCOUNTER → 2023-03-28 09:58 | Outpatient (BNVA) | payer MEDICARE, SELFPAY | PROVIDERS: PCP Family Medicine; Visit Provider Internal Medicine Cardiovascular Disease | DX: R06.02 Shortness of breath (principal); I10 Essential (primary) hypertension; R07.9 Chest pain, unspecified; E78.2 Mixed hyperlipidemia; M79.89 Other specified soft tissue disorders; Z87.891 Personal history of nicotine dependence | CPT/HCPCS: 93005; 99214 ==

== ENCOUNTER → 2023-03-28 10:01 | Outpatient (BNVA) | payer MEDICARE, SELFPAY | PROVIDERS: PCP Family Medicine; Visit Provider Internal Medicine Cardiovascular Disease | DX: I10 Essential (primary) hypertension (principal) | CPT/HCPCS: 93005 ==

== ENCOUNTER → 2023-05-21 09:58 | Outpatient (BNVA) | payer MEDICARE, SELFPAY | PROVIDERS: PCP Family Medicine; Visit Provider Family Medicine | DX: N89.8 Other specified noninflammatory disorders of vagina (principal) | CPT/HCPCS: 87070; 87077; 87205 ==

== ENCOUNTER → 2023-06-01 10:44 | Outpatient (BNVA) | payer MEDICARE, SELFPAY | PROVIDERS: PCP Family Medicine; Visit Provider Family Medicine | DX: E11.42 Type 2 diabetes mellitus with diabetic polyneuropathy (principal); K21.9 Gastro-esophageal reflux disease without esophagitis | CPT/HCPCS: 80053; 83036 ==

== ENCOUNTER → 2023-06-12 07:28 | Outpatient (BNVA) | payer MEDICARE, SELFPAY | PROVIDERS: PCP Family Medicine; Visit Provider Surgery | DX: Z12.11 Encounter for screening for malignant neoplasm of colon (principal); R10.13 Epigastric pain; K21.9 Gastro-esophageal reflux disease without esophagitis | CPT/HCPCS: 99024; 99203 ==

== ENCOUNTER → 2023-06-14 12:57 | Outpatient (BNVA) | payer MEDICARE, SELFPAY | PROVIDERS: PCP Family Medicine; Visit Provider Specialist | DX: G43.701 Chronic migraine without aura, not intractable, with status migrainosus (principal) | CPT/HCPCS: 64615; J0585 ==

== ENCOUNTER → 2023-07-26 10:14 | Outpatient (BNVA) | payer MEDICARE, SELFPAY | PROVIDERS: PCP Family Medicine; Visit Provider Anesthesiology Pain Medicine | DX: G89.29 Other chronic pain; M51.16 Intervertebral disc disorders with radiculopathy, lumbar region; M47.816 Spondylosis without myelopathy or radiculopathy, lumbar region | CPT/HCPCS: 99214 ==

== ENCOUNTER → 2023-08-23 13:42 | Outpatient (BNVA) | payer MEDICARE, SELFPAY | PROVIDERS: PCP Family Medicine; Visit Provider Anesthesiology Pain Medicine | DX: M47.816 Spondylosis without myelopathy or radiculopathy, lumbar region (principal); G89.29 Other chronic pain | CPT/HCPCS: 64493; 64494; 64495; J3490 ==

== ENCOUNTER → 2023-09-13 13:31 | Outpatient (BNVA) | payer MEDICARE, SELFPAY | PROVIDERS: PCP Family Medicine; Visit Provider Specialist | DX: G43.701 Chronic migraine without aura, not intractable, with status migrainosus (principal) | CPT/HCPCS: 64615; 95911; J0585 ==

== ENCOUNTER → 2023-09-24 10:54 | Outpatient (BNVA) | payer MEDICARE, SELFPAY | PROVIDERS: PCP Family Medicine; Visit Provider Internal Medicine Cardiovascular Disease | DX: R06.02 Shortness of breath (principal); I10 Essential (primary) hypertension; M79.89 Other specified soft tissue disorders; Z87.891 Personal history of nicotine dependence | CPT/HCPCS: 99214 ==

== ENCOUNTER 2023-09-28 05:47 | Day surgery (SDC) | payer MEDICARE, SELFPAY ==
[2023-09-28 06:03] VITALS: BP 112/76; PULSE 66; RESP 16; TEMP 36.2; O2SAT 97
[2023-09-28 06:07] VITALS: BMI 41.8
[2023-09-28 06:28] LABS: Glucose Point of Care 114 mg/dL (70-110)
--- NOTE | 2023-09-28 06:29 | W.PM.OPSFHP ---
Same Day Surgery H&P Indication for Procedure/HPI DATE OF PROCEDURE: September 28, 2023 CHIEF COMPLAINT/INDICATIONFOR SURGICAL PROCEDURE: gerd and need for screening colonoscopy PREOP DIAGNOSIS: gerd and need for screening colon PLANNED PROCEDURE: Operation Date: 09/28/23 07:00 Proposed Procedures p 21402 egd 06012 ,G0121 colon K21.9,Z12.11(Not Applicable) - Bienvenido Zhao MD s Colonoscopy(Not Applicable) - Bienvenido Zhao MD Medications/Allergies* Home Medications Medication Instructions Recorded Confirmed Type cholecalciferol (vitamin D3) 50 50 mcg PO DAILY 01/10/22 09/28/23 History mcg (2,000 unit) capsule tizanidine 4 mg tablet 4 mg PO BEDTIME PRN muscle 05/19/22 09/28/23 History spasticity acetaminophen 325 mg tablet 325 mg PO QID PRN Pain 03/28/23 09/28/23 History (Tylenol) cetirizine 10 mg capsule (All Day 10 mg PO DAILY PRN Allergy Symptoms 06/01/23 09/26/23 History Allergy (cetirizine)) atorvastatin 10 mg tablet 10 mg PO DAILY 09/26/23 09/26/23 History meloxicam 15 mg tablet 15 mg PO DAILY 09/26/23 09/28/23 History pantoprazole 40 mg tablet,delayed 40 mg PO BID 09/26/23 09/28/23 History release potassium chloride 10 mEq 10 meq PO BID 09/26/23 09/28/23 History tablet,extended release(part/cryst) (Klor-Con M) propranolol 20 mg tablet 20 mg PO BID 09/26/23 09/28/23 History topiramate 50 mg tablet 50 mg PO DAILY 09/26/23 09/28/23 History Allergies/Adverse Reactions Allergy/AdvReac Type Severity Reaction Status Date / Time carisoprodol [From Soma] Allergy Unknown Verified 09/24/23 11:08 duloxetine [From Cymbalta] Allergy upset Verified 09/24/23 11:08 stomach during the time she had covid so she d/c zonisamide [From Zonegran] Allergy Unknown Verified 09/24/23 11:08 Pertinent History/Comorbid Conditions* Medical History (Updated 06/01/23 @ 10:22 by Shena Mccormick DO) Smoker Psychiatric care History of COVID-19 Encounter for long-term (current) use of NSAIDs Type 2 diabetes mellitus, without long-term current use of insulin Opioid contract exists Nicotine dependence, cigarettes, uncomplicated Post-traumatic stress disorder, chronic Leg swelling Headache, chronic migraine without aura, with status migrainosus GERD (gastroesophageal reflux disease) KELY (obstructive sleep apnea) Mixed hyperlipidemia Benign essential HTN Spondylosis without myelopathy or radiculopathy, lumbar region correction (current) use of opiate analgesic Continue to monitor use of pain medication Diabetic polyneuropathy associated with type 2 diabetes mellitus RAD (reactive airway disease) with wheezing Fibromyalgia Deaf Surgical History (Updated 08/09/21 @ 09:56 by Shena Mccormick DO) H/O tubal ligation S/P carpal tunnel release BILATERAL S/P bilateral breast reduction S/P hysterectomy Partial S/P skin cancer resection Family History (Updated 10/09/19 @ 11:46 by Joellen aDvis LPN) Diabetes CAD (coronary artery disease) Father Psychiatric illness Mother Family/Other MATERNAL AUNT Grandmother MATERNAL Cancer Social History Smoking and tobacco/nicotine status: former use of tobacco/nicotine Second hand smoke exposure: No Alcohol intake: former Year of sobriety/quit date alcohol: 1.5 Substance/Drug Use: never Current gender identity: Female Pertinent Exam Findings alert, oriented x 3 and clear to auscultation bilaterally Recommendations Surgery/Procedure today Coding Level of Care Code Acute Code for Chg Fwd
--- NOTE | 2023-09-28 06:40 | ANES.PREANE2 ---
Pre-Anesthetic Assessment Height/Weight: Height 1.63 m Weight 110.677 kg Preop Diagnosis: gerd and need for screening colon Operation Date: 09/28/23 07:00 Proposed Procedures p 69360 egd 20353 ,G0121 colon K21.9,Z12.11(Not Applicable) - Bienvenido Zhao MD s Colonoscopy(Not Applicable) - Bienvenido Zhao MD Was Beta Jamal taken within 24 hours: N/A Was Clonidine taken within 24 hours: N/A Last intake: Intake Last Liquid Date 09/27/23 Last Liquid Time 11:53 Last Solid Date 09/26/23 Last Solid Time 23:30 Social No alcohol and No tobacco Exam alert and oriented x 3 Airway Submandibular: within normal limits Cervical ROM: within normal limits Mallampati: Class II Dentition: chipped (lower molars broken on left and right) History/ROS No significant history except as noted Pulmonary Sleep Apnea CV/HEM Hypertension None reported Hepatic None reported GI Gastroesophageal Reflux Disease Metabolic Diabetes Mellitus, Hyperlipidemia and Morbid Obesity Musc/skel Fibromyalgia and Lower Back Pain Neuropsych Anxiety Anesthetic Plan ASA status: 3 Anesthesia: MAC Risk of > 500 ml blood loss (7ml/kg in children): No Medications/Allergies Home Medications Medication Instructions Recorded Confirmed Last Taken Type cholecalciferol (vitamin D3) 50 50 mcg PO DAILY 01/10/22 09/28/23 09/27/23 10:00 History mcg (2,000 unit) capsule tizanidine 4 mg tablet 4 mg PO BEDTIME PRN muscle 05/19/22 09/28/23 09/27/23 10:00 History spasticity acetaminophen 325 mg tablet 325 mg PO QID PRN Pain 03/28/23 09/28/23 Unknown History (Tylenol) furosemide 40 mg tablet 40 mg PO BID #180 tabs 04/06/23 09/28/23 09/27/23 10:00 Rx cetirizine 10 mg capsule (All Day 10 mg PO DAILY PRN Allergy Symptoms 06/01/23 09/26/23 09/27/23 History Allergy (cetirizine)) citalopram 40 mg tablet 40 mg PO DAILY #90 tabs 07/06/23 09/28/23 09/27/23 10:00 Rx onabotulinumtoxinA 100 unit 155 unit IM ONCE #2 ea 07/18/23 09/26/23 1 Month Ago Rx solution for injection (Botox) ~08/27/23 trazodone 50 mg tablet 50 mg PO .at bed #90 tabs 08/16/23 09/28/23 09/27/23 10:00 Rx sitagliptin phosphate 50 mg tablet 50 mg PO DAILY #90 tabs 08/24/23 09/28/23 09/27/23 10:00 Rx (Januvia) atorvastatin 10 mg tablet 10 mg PO DAILY 09/26/23 09/26/23 09/27/23 History meloxicam 15 mg tablet 15 mg PO DAILY 09/26/23 09/28/23 09/27/23 10:00 History pantoprazole 40 mg tablet,delayed 40 mg PO BID 09/26/23 09/28/23 09/27/23 10:00 History release potassium chloride 10 mEq 10 meq PO BID 09/26/23 09/28/23 09/27/23 10:00 History tablet,extended release(part/cryst) (Klor-Con M) propranolol 20 mg tablet 20 mg PO BID 09/26/23 09/28/23 09/27/23 10:00 History topiramate 50 mg tablet 50 mg PO DAILY 09/26/23 09/28/23 09/27/23 10:00 History Allergies Allergy/AdvReac Type Severity Reaction Status Date / Time carisoprodol [From Soma] Allergy Unknown Verified 09/24/23 11:08 duloxetine [From Cymbalta] Allergy upset Verified 09/24/23 11:08 stomach during the time she had covid so she d/c zonisamide [From Zonegran] Allergy Unknown Verified 09/24/23 11:08 [facility] Anesthesia Medical History Smoker Psychiatric care History of COVID-19 Encounter for long-term (current) use of NSAIDs Type 2 diabetes mellitus, without long-term current use of insulin Opioid contract exists Nicotine dependence, cigarettes, uncomplicated Post-traumatic stress disorder, chronic Leg swelling Headache, chronic migraine without aura, with status migrainosus GERD (gastroesophageal reflux disease) KELY (obstructive sleep apnea) Mixed hyperlipidemia Benign essential HTN Spondylosis without myelopathy or radiculopathy, lumbar region MCC (current) use of opiate analgesic Continue to monitor use of pain medication Diabetic polyneuropathy associated with type 2 diabetes mellitus RAD (reactive airway disease) with wheezing Fibromyalgia Deaf Surgical History H/O tubal ligation S/P carpal tunnel release BILATERAL S/P bilateral breast reduction S/P hysterectomy Partial S/P skin cancer resection Family History Father CAD (coronary artery disease) Mother Psychiatric illness Family/Other Psychiatric illness MATERNAL AUNT Grandmother Psychiatric illness MATERNAL Other Cancer Diabetes Social History Smoking and tobacco/nicotine status: former use of tobacco/nicotine Second hand smoke exposure: No Alcohol intake: former Year of sobriety/quit date alcohol: 1.5 Substance/Drug Use: never Current gender identity: Female Data Anesthesia Cardiac Studies: No Data to Display
[2023-09-28] MEDS: sodium chloride 0.9% 1,000 ML 30 ML IV (06:48)
[2023-09-28 07:52] VITALS: BP 91/58; PULSE 76; RESP 18; TEMP 36.1; O2SAT 96
[2023-09-28 08:03] VITALS: BP 99/68; PULSE 71; RESP 18; O2SAT 96
[2023-09-28 08:10] VITALS: BP 99/68; PULSE 64; RESP 18; O2SAT 97
--- NOTE | 2023-09-28 14:45 | ANE.PACU2 ---
Inpatient post-anesthesia follow up: Airway intact: Yes Vital signs: Temperature 97.0 F Pulse Rate 64 Respiratory Rate 18 Blood Pressure 99/68 Pulse Oximetry 97 Oxygen Delivery Me thod Room Air Oxygen Flow Rate Fraction of Inspir ed Oxygen Hydration adequate: Yes Nausea and vomiting: No Pain level: 1 Mental status: Baseline
== END 2023-09-28 08:35 | disposition home or self-care (01) ==
PROVIDERS: PCP Family Medicine; Visit Provider Surgery
PROC: 0DJ08ZZ Inspection of Upper Intestinal Tract, Via Natural or Artificial Opening Endoscopic (ICD-10-PCS; CPT 43235; principal; 2023-09-28 07:00)
PROC: 0DJD8ZZ Inspection of Lower Intestinal Tract, Via Natural or Artificial Opening Endoscopic (ICD-10-PCS; CPT 45378; 2023-09-28 07:00)
DX: Z12.11 Encounter for screening for malignant neoplasm of colon (principal); K21.9 Gastro-esophageal reflux disease without esophagitis; K29.70 Gastritis, unspecified, without bleeding; K63.5 Polyp of colon; F17.210 Nicotine dependence, cigarettes, uncomplicated; Z86.16 Personal history of COVID-19; E11.9 Type 2 diabetes mellitus without complications; Z79.891 Long term (current) use of opiate analgesic; G47.33 Obstructive sleep apnea (adult) (pediatric); E78.2 Mixed hyperlipidemia; I10 Essential (primary) hypertension; M79.7 Fibromyalgia; G47.30 Sleep apnea, unspecified; E66.01 Morbid (severe) obesity due to excess calories; Z68.41 Body mass index [BMI] 40.0-44.9, adult
CPT/HCPCS: 36416; 43239; 45380; 45385; 82962; 88305; J2704; J7030

== ENCOUNTER 2023-11-20 12:41 | Outpatient (CLI) | payer OTHER, SELFPAY ==
[2023-11-20 12:58] VITALS: BMI 41.1
--- NOTE | 2023-11-20 12:59 | ECG_ITS ---
[facility] Test Date: 2023-11-20 Pat Name: Kathie Sahni Department: Room: Gender: Female Chairman And Chief Executive Officer: : 1975 Requested By: Sharon Reina Order Number: [id number] Davis MD: Beni Betancur M.D. Interpretive Statements NAME OF STUDY: TREADMILL STRESS ECHOCARDIOGRAM INDICATION: [Essential HTN] EXERCISE DATA: The patient was exercised by Keith protocol. Baseline heart rate was 92 beats per minute. Baseline blood pressure was 107/68 millimeters of mercury. Maximal predicted heart rate was 170 beats per minute. Maximum heart rate achieved was 150 which was 88% of the maximum predicted heart rate. Maximum blood pressure was 188/83 millimeters of mercury. Total exercise time was 5 minutes and 19 seconds. Maximum METs achieved was 7 . The reason for ending the test was target heart rate achieved. The patient complained of shortness of breath during the stress test, which then resolved at the end of the test. ELECTROCARDIOGRAM: BASELINE: Showed sinus rhythm, normal axis, no significant ST-T changes at the baseline noted. [] EXERCISE: At the peak exercise level, [] No significant ST-T changes suggestive of ischemia noted. [] RECOVERY: During the recovery period, heart rate dropped appropriately. No significant ST-T changes in the recovery suggestive of ischemia noted. [] CONCLUSION: 1. Exercise capacity is fair. 2. Heart rate response was appropriate. 3. Blood pressure response was appropriate. 4. Symptoms not suggestive of ischemia. 5. Electrocardiogram portion of the stress test was not suggestive of ischemia. 6. Stress echocardiogram will be documented separately. Electronically Signed On 12-27-2023 9:29:48 CDT by Beni Betancur M.D. [id number]
--- NOTE | 2023-11-20 12:59 | USCV_ITS ---
Stress Echo Kathie Sahni Age: 48 Gender: F : 1975 Exam Date: 11/20/2023 13:11 Ordering Phys: Sharon Reina Technologist: Genet Cottrell Exam Location: [facility] [place] Indication: HTN Rhythm: Sinus Patient History: HTN, DM, KELY, Hyperlipidemia , Smoker Cardiac Medications: Propranolol 20mg BID Medications in past 24 hours: None Contrast: Stress Results Protocol: Keith Total dose(mL): Exercise Duration (min:sec): 5:19 METS: 7.0 Resting HR: 68 Resting BP: 128 / 75 Peak HR: 150 Peak BP: 188 / 83 Max Predicted HR: 170 88 % Max Predicted HR Target HR: 145 Double Product: 99394 Stress Summary: The patient's target heart rate was achieved BP Response: Normal Reason for Termination: Test terminated after reaching target heart rate (85% max predicted), Maximal effort/unable to continue Cardiac Symptoms: Shortness of Breath ECG Analysis Resting ECG: Normal in sinus rhythm. No ST T wave changes Stress ECG: Sinus tachycardia was seen with no significant ST- T wave changes. Patient able to achieve target heart rate with maximal heart rate reaching 88% of maximal predicted heart rate with Arrhythmia: None MEASUREMENTS (Male/Female) Normal Values 2D ECHO LVOT Diameter 2.0 cm LV Ejection Fraction MOD 2C 64.8 % LV Ejection Fraction 2C AL 67.2 % LA Diameter 3.1 cm Aorta at Sinotubular Diameter 2.2 cm FINDINGS On baseline LV systolic function is normal with EF of 60 to 65%. No regional wall motion abnormalities are seen. Grossly normal mitral and aortic valve. RV is normal in size and function. Aorta is normal in size Although patient reached target heart rate however images were obtained at significantly lower than target heart rate( 10-11 beats lower). At heart rates of 134 bpm at which images were obtained, no regional wall motion abnormalities were seen. However stress test is indeterminate as these heart rates were suboptimal CONCLUSIONS 1. At baseline normal LV systolic function. 2. EKG portion of stress test is negative for ischemia 3. ECHO images were obtained at significantly lower than target heart rates (10-11 beats less than target). Echo stress test is indeterminate to assess ischemia as images were at lower than target heart rates. Beni Betancur MD (Electronically Signed) Final Date: 03 December 2023 09:58 S
[2023-11-20 13:48] VITALS: BP 111/62; PULSE 96
== END 2023-11-20 12:42 | disposition home or self-care (01) ==
PROVIDERS: PCP Family Medicine; Visit Provider Internal Medicine
DX: I10 Essential (primary) hypertension (principal); R06.02 Shortness of breath; R07.9 Chest pain, unspecified; E11.9 Type 2 diabetes mellitus without complications; G47.33 Obstructive sleep apnea (adult) (pediatric); E78.5 Hyperlipidemia, unspecified; F17.200 Nicotine dependence, unspecified, uncomplicated
CPT/HCPCS: 93017; 93350

== ENCOUNTER → 2023-12-03 10:20 | Outpatient (BNVA) | payer OTHER, SELFPAY | PROVIDERS: PCP Family Medicine; Visit Provider Family Medicine | DX: E11.42 Type 2 diabetes mellitus with diabetic polyneuropathy (principal); Z13.6 Encounter for screening for cardiovascular disorders; M54.9 Dorsalgia, unspecified; G89.29 Other chronic pain; G43.701 Chronic migraine without aura, not intractable, with status migrainosus; E11.9 Type 2 diabetes mellitus without complications | CPT/HCPCS: 80053; 80061; 82043; 83036; 85025 ==

== ENCOUNTER → 2023-12-18 12:59 | Outpatient (BNVA) | payer MEDICARE, SELFPAY | PROVIDERS: PCP Family Medicine; Visit Provider Surgery | DX: Z09 Encounter for follow-up examination after completed treatment for conditions other than malignant neoplasm (principal) | CPT/HCPCS: 99213 ==

== ENCOUNTER → 2023-12-24 10:55 | Outpatient (BNVA) | payer MEDICARE, SELFPAY | PROVIDERS: PCP Family Medicine; Visit Provider Nurse Practitioner Family | DX: I10 Essential (primary) hypertension (principal); Z87.891 Personal history of nicotine dependence | CPT/HCPCS: 99213 ==

== ENCOUNTER → 2024-01-10 11:45 | Outpatient (BNVA) | payer MEDICARE, SELFPAY | PROVIDERS: PCP Family Medicine; Visit Provider Specialist | DX: G43.711 Chronic migraine without aura, intractable, with status migrainosus (principal) | CPT/HCPCS: 64615; J0585 ==

== ENCOUNTER → 2024-01-31 11:31 | Outpatient (BNVA) | payer OTHER, SELFPAY | PROVIDERS: PCP Family Medicine; Visit Provider Anesthesiology Pain Medicine | DX: G89.29 Other chronic pain; M51.16 Intervertebral disc disorders with radiculopathy, lumbar region; M47.816 Spondylosis without myelopathy or radiculopathy, lumbar region | CPT/HCPCS: 99214 ==

== ENCOUNTER → 2024-02-14 14:46 | Outpatient (BNVA) | payer OTHER, SELFPAY | PROVIDERS: PCP Family Medicine; Visit Provider Anesthesiology Pain Medicine | DX: M47.816 Spondylosis without myelopathy or radiculopathy, lumbar region (principal); G89.29 Other chronic pain | CPT/HCPCS: 64493; 64494; 64495 ==

== ENCOUNTER → 2024-03-11 14:32 | Outpatient (BNVA) | payer OTHER, SELFPAY | PROVIDERS: PCP Family Medicine; Visit Provider Family Medicine | DX: E11.42 Type 2 diabetes mellitus with diabetic polyneuropathy (principal); Z13.6 Encounter for screening for cardiovascular disorders | CPT/HCPCS: 80053; 83036 ==

== ENCOUNTER → 2024-04-01 10:45 | Outpatient (BNVA) | payer OTHER, SELFPAY | PROVIDERS: PCP Family Medicine; Visit Provider Anesthesiology Pain Medicine | DX: G89.29 Other chronic pain; M51.16 Intervertebral disc disorders with radiculopathy, lumbar region; M47.816 Spondylosis without myelopathy or radiculopathy, lumbar region | CPT/HCPCS: 99214 ==

== ENCOUNTER → 2024-04-10 12:24 | Outpatient (BNVA) | payer MEDICARE, SELFPAY | PROVIDERS: PCP Family Medicine; Visit Provider Specialist | DX: G43.711 Chronic migraine without aura, intractable, with status migrainosus (principal) | CPT/HCPCS: 64615; J0585 ==

== ENCOUNTER → 2024-06-09 13:30 | Outpatient (BNVA) | payer OTHER, SELFPAY | PROVIDERS: PCP Family Medicine | DX: E87.6 Hypokalemia (principal); E11.42 Type 2 diabetes mellitus with diabetic polyneuropathy; E78.2 Mixed hyperlipidemia | CPT/HCPCS: 80053; 80061; 83036 ==

== ENCOUNTER → 2024-07-10 12:41 | Outpatient (BNVA) | payer OTHER, SELFPAY | PROVIDERS: PCP Family Medicine; Visit Provider Specialist | DX: G43.711 Chronic migraine without aura, intractable, with status migrainosus (principal) | CPT/HCPCS: 64615; J0585 ==

== ENCOUNTER → 2024-09-09 14:46 | Outpatient (BNVA) | payer OTHER, SELFPAY | PROVIDERS: PCP Family Medicine | DX: E11.42 Type 2 diabetes mellitus with diabetic polyneuropathy (principal) | CPT/HCPCS: 80053; 83036 ==

== ENCOUNTER 2024-09-23 12:30 | Outpatient (CLI) | payer OTHER, SELFPAY ==
--- NOTE | 2024-09-23 12:30 | MM_ITS ---
WS: [id number] VIEWS: MLO and CC views both breasts. 3D digital tomosynthesis is also included in this exam. Comparison made with prior exam of 12/19/2017, 12/30/2018, 05/20/2020, 05/23/2021, 08/31/2022.. Findings: There are scattered areas of fibroglandular density. No sign of suspicious mass, tumor calcification or architectural distortion. MM/MM scr BI tomosynthesis [id number] Impression: BI-RADS: 2 - Benign. FOLLOW-UP: 1 Year Follow-up This mammogram was also analyzed by the Computer Aided Detection System R2 Imag e [employer] Wall N[employer].
== END 2024-09-23 12:32 | disposition home or self-care (01) ==
DX: Z12.31 Encounter for screening mammogram for malignant neoplasm of breast (principal); R92.323 Mammographic fibroglandular density, bilateral breasts; R06.02 Shortness of breath; I10 Essential (primary) hypertension; G47.33 Obstructive sleep apnea (adult) (pediatric); E78.5 Hyperlipidemia, unspecified; R60.9 Edema, unspecified; M47.816 Spondylosis without myelopathy or radiculopathy, lumbar region
CPT/HCPCS: 77063; 77067; 99214

== ENCOUNTER → 2024-09-24 12:51 | Outpatient (BNVA) | payer OTHER, SELFPAY | PROVIDERS: Visit Provider Surgery | DX: R10.9 Unspecified abdominal pain (principal); G89.29 Other chronic pain | CPT/HCPCS: 99213 ==

== ENCOUNTER 2024-09-29 08:14 | Outpatient (CLI) | payer OTHER, SELFPAY ==
--- NOTE | 2024-09-29 08:15 | US_ITS ---
WS: [id number] ULTRASOUND ABDOMEN LIMITED CLINICAL INFORMATION: abdominal pain COMPARISON: None. FINDINGS: Liver Size: Enlarged Craniocaudal length: 18.6 cm. Echogenicity: Coarse Surface nodularity: None. Mass (size and location): None. Bile ducts Intrahepatic ducts: Normal. Common bile duct diameter: 0.3 cm. Gallbladder Sludge Gallstones: None. Gallbladder sludge: Present Gallbladder wall thickening: None. Pericholecystic fluid: None. Sonographic Yanez sign: Absent. Pancreas Normal as visualized. Right kidney: Normal. Hydronephrosis: None. Size: 10.6 cm x 5.0 cm x 4.5 cm. Abdominal aorta and IVC Visualized portions are normal. Ascites: None. US/US gall bladder [id number] IMPRESSION: 1. Liver size upper limits of normal with fatty infiltration. 2. Suggestion of small amount of sludge in the gallbladder but only seen in on e plane. Gallbladder is otherwise normal in appearance. 3. Normal common bile duct. 4. No hydronephrosis in the RIGHT kidney.
== END 2024-09-29 08:15 | disposition home or self-care (01) ==
PROVIDERS: Visit Provider Surgery
DX: R10.9 Unspecified abdominal pain (principal); G89.29 Other chronic pain
CPT/HCPCS: 76705; 83630; 83993

== ENCOUNTER → 2024-10-17 12:16 | Outpatient (BNVA) | payer MEDICARE, SELFPAY | PROVIDERS: Visit Provider Specialist | DX: G43.711 Chronic migraine without aura, intractable, with status migrainosus (principal) | CPT/HCPCS: 64615; J0585 ==

== ENCOUNTER 2024-10-23 09:25 | Outpatient (CLI) | payer MEDICARE, SELFPAY ==
--- NOTE | 2024-10-23 10:00 | NM_ITS ---
WS: [id number] NUCLEAR MEDICINE HIDA SCAN WITH GALLBLADDER EJECTION FRACTION HISTORY: abdominal pain COMPARISON: Gallbladder ultrasound 09/29/2024 TECHNIQUE: The patient was intravenously injected with 7.5 mCi of TC99m Mebrofenin. Immediate imaging over the right upper quadrant was followed by 5 minute image and additional images for a total of 60 minutes. Normal uptake of radiotracer throughout the liver. Activity identified in the gallbladder at 15 minutes and well distended by 60 minutes. Activity in the proximal small bowel was seen by 15 minutes. Good washout of the radiotracer from the liver by 60 minutes. The patient then drank 8 ounces of Ensure Plus. Ejection fraction at 60 minutes was 91%. Normal GB ej ection fraction is 35-75%. Post fatty meal symptoms: None. NM/NM hepatobiliary w phar* [id number] IMPRESSION: 1. Normal HIDA scan. 2. Normal gallbladder ejection fraction.
== END 2024-10-23 09:26 | disposition home or self-care (01) ==
LOC: RAD 09:27
PROVIDERS: Visit Provider Surgery
DX: R10.9 Unspecified abdominal pain (principal)
CPT/HCPCS: 78227; A9537

== ENCOUNTER → 2024-11-24 14:16 | Outpatient (BNVA) | payer MEDICARE, SELFPAY | DX: E11.42 Type 2 diabetes mellitus with diabetic polyneuropathy (principal); E78.2 Mixed hyperlipidemia; K29.30 Chronic superficial gastritis without bleeding; E87.6 Hypokalemia; G43.701 Chronic migraine without aura, not intractable, with status migrainosus | CPT/HCPCS: 80053; 80061; 83036 ==

== ENCOUNTER → 2024-12-16 08:52 | Outpatient (BNVA) | payer MEDICARE, SELFPAY | PROVIDERS: Visit Provider Surgery | DX: Z09 Encounter for follow-up examination after completed treatment for conditions other than malignant neoplasm (principal) | CPT/HCPCS: 99213 ==

== ENCOUNTER → 2024-12-22 13:48 | Outpatient (BNVA) | payer MEDICARE, SELFPAY | PROVIDERS: Visit Provider Anesthesiology Pain Medicine | DX: M54.9 Dorsalgia, unspecified (principal); G89.29 Other chronic pain; M51.16 Intervertebral disc disorders with radiculopathy, lumbar region; M47.816 Spondylosis without myelopathy or radiculopathy, lumbar region | CPT/HCPCS: 99214 ==

== ENCOUNTER 2025-01-15 09:50 | Day surgery (SDC) | payer MEDICARE, SELFPAY ==
[2025-01-15 10:06] VITALS: BP 133/104; PULSE 82; RESP 16; TEMP 36.4; O2SAT 97; BMI 39.9
[2025-01-15] MEDS: sodium chloride 0.9% 1,000 ML 15 ML IV (10:13)
[2025-01-15 10:15] LABS: Glucose Point of Care 149 mg/dL (70-110)
--- NOTE | 2025-01-15 10:20 | W.PM.OPSFHP ---
Same Day Surgery H&P Indication for Procedure/HPI DATE OF PROCEDURE: January 15, 2025 CHIEF COMPLAINT/INDICATIONFOR SURGICAL PROCEDURE: abdominal pain and need for screening PREOP DIAGNOSIS: abdominal pain and need for screening PLANNED PROCEDURE: Operation Date: 01/15/25 11:30 Proposed Procedures p Colonoscopy 13289 Z12.11(Not Applicable) - Bienvenido Zhao MD Medications/Allergies* Home Medications ?Medication ?Instructions ?Recorded ?Confirmed ?Type cholecalciferol (vitamin D3) 50 50 mcg PO DAILY 01/10/22 01/15/25 History mcg (2,000 unit) capsule acetaminophen 325 mg tablet 325 mg PO QID PRN Pain 03/28/23 01/15/25 History (Tylenol) cetirizine 10 mg capsule (All Day 10 mg PO DAILY PRN Allergy Symptoms 06/01/23 01/15/25 History Allergy (cetirizine)) atorvastatin 10 mg tablet 10 mg PO DAILY 01/12/25 01/15/25 History citalopram 40 mg tablet 40 mg PO DAILY 01/12/25 01/15/25 History furosemide 40 mg tablet 80 mg PO DAILY 01/12/25 01/15/25 History potassium chloride 20 mEq 20 meq PO BID 01/12/25 01/15/25 History tablet,extended release propranolol 20 mg tablet 20 mg PO BID 01/12/25 01/15/25 History sitagliptin phosphate 50 mg tablet 50 mg PO DAILY 01/12/25 01/15/25 History (Januvia) tizanidine 4 mg tablet 4 mg PO BEDTIME PRN Muscle Spasm 01/12/25 01/15/25 History Allergies/Adverse Reactions Allergy/AdvReac Type Severity Reaction Status Date / Time carisoprodol (From Soma) Allergy Unknown Verified 01/15/25 10:02 duloxetine (From Cymbalta) Allergy upset Verified 01/15/25 10:02 stomach during the time she had covid so she d/c zonisamide (From Zonegran) Allergy Unknown Verified 01/15/25 10:02 Current Medications: Generic Name Dose Route Start Last Admin Trade Name Freq PRN Reason Stop Dose Admin Sodium Chloride 1,000 mls @ 15 mls/hr 01/15/25 09:57 01/15/25 10:13 Sodium Chloride 0.9% IV 01/16/25 09:56 15 mls/hr .Q24H PRN Administration COLONOSCOPY FLUIDS Pertinent History/Comorbid Conditions* Medical History (Updated 09/24/24 @ 16:10 by Bienvenido Zhao MD) Borderline personality disorder Smoker Psychiatric care History of COVID-19 Encounter for long-term (current) use of NSAIDs Type 2 diabetes mellitus, without long-term current use of insulin Opioid contract exists Nicotine dependence, cigarettes, uncomplicated Post-traumatic stress disorder, chronic Leg swelling Headache, chronic migraine without aura, with status migrainosus GERD (gastroesophageal reflux disease) KELY (obstructive sleep apnea) Mixed hyperlipidemia Benign essential HTN Spondylosis without myelopathy or radiculopathy, lumbar region residential (current) use of opiate analgesic Continue to monitor use of pain medication Diabetic polyneuropathy associated with type 2 diabetes mellitus RAD (reactive airway disease) with wheezing Fibromyalgia Deaf Surgical History (Updated 08/09/21 @ 09:56 by Shena Mccormick DO) H/O tubal ligation S/P carpal tunnel release BILATERAL S/P bilateral breast reduction S/P hysterectomy Partial S/P skin cancer resection Family History (Updated 10/09/19 @ 11:46 by Joellen Davis LPN) Diabetes CAD (coronary artery disease) Father Psychiatric illness Mother Family/Other MATERNAL AUNT Grandmother MATERNAL Cancer Social History Smoking and tobacco/nicotine status: tobacco/nicotine user, details unknown Second hand smoke exposure: No Alcohol intake: former Year of sobriety/quit date alcohol: 1.5 Substance/Drug Use: never Adopted: No service: No Current occupational exposures/hazards: No Current gender identity: Female Pertinent Exam Findings alert, oriented x 3, clear to auscultation bilaterally and regular rate & rhythm Recommendations Surgery/Procedure today Coding Level of Care Code Acute Code for Chg Fwd
--- NOTE | 2025-01-15 10:30 | ANES.PREANE2 ---
Pre-Anesthetic Assessment Height/Weight: Height 1.63 m Weight 105.687 kg Temp Pulse Resp BP Pulse Ox O2 Del Method 97.6 F 82 16 133/104 97 Room Air 01/15/25 10:06 01/15/25 10:06 01/15/25 10:06 01/15/25 10:06 01/15/25 10:06 01/15/25 10:06 Preop Diagnosis: abdominal pain and need for screening Operation Date: 01/15/25 11:30 Proposed Procedures p Colonoscopy 59634 Z12.11(Not Applicable) - Bienvenido Zhao MD Was Beta Jamal taken within 24 hours: Yes Was Clonidine taken within 24 hours: N/A Last intake: Intake Last Liquid Date 01/14/25 Last Liquid Time 21:00 Last Solid Date 01/13/25 Last Solid Time 17:00 Social Past smoker. Quit 2-3 years ago Exam alert, oriented x 3, clear to auscultation bilaterally and regular rate & rhythm Airway Submandibular: within normal limits Cervical ROM: within normal limits Mallampati: Class II Dentition: chipped and loose Comments: Comments: Poor dentition History/ROS No significant history except as noted and No significant complaints Pulmonary Exertional Dyspnea and Sleep Apnea CV/HEM Hypertension None reported Hepatic None reported GI None reported Metabolic Diabetes Mellitus and Morbid Obesity Musc/skel None reported Neuropsych Bipolar and Neuropathy Anesthetic Plan ASA status: 3 Anesthesia: Anesthesia Evaluation and MAC Risk of > 500 ml blood loss (7ml/kg in children): No Medications/Allergies Home Medications ?Medication ?Instructions ?Recorded ?Confirmed ?Last Taken ?Type cholecalciferol (vitamin D3) 50 50 mcg PO DAILY 01/10/22 01/15/25 01/14/25 History mcg (2,000 unit) capsule acetaminophen 325 mg tablet 325 mg PO QID PRN Pain 03/28/23 01/15/25 01/14/25 History (Tylenol) cetirizine 10 mg capsule (All Day 10 mg PO DAILY PRN Allergy Symptoms 06/01/23 01/15/25 01/14/25 History Allergy (cetirizine)) pantoprazole 40 mg tablet,delayed 40 mg PO BID #180 tabs 11/24/24 01/15/25 01/14/25 Rx release topiramate 50 mg tablet 50 mg PO DAILY #270 tabs 11/24/24 01/15/25 01/14/25 Rx polyethylene glycol 3350 17 17 g PO BID 5 days #170 grams 12/16/24 01/12/25 01/12/25 Rx gram/dose oral powder (Miralax) trazodone 50 mg tablet 50 mg PO .at bed #90 tabs 12/22/24 01/15/25 01/14/25 Rx atorvastatin 10 mg tablet 10 mg PO DAILY 01/12/25 01/15/25 01/14/25 History citalopram 40 mg tablet 40 mg PO DAILY 01/12/25 01/15/25 01/14/25 History furosemide 40 mg tablet 80 mg PO DAILY 01/12/25 01/15/25 01/14/25 History potassium chloride 20 mEq 20 meq PO BID 01/12/25 01/15/25 01/14/25 History tablet,extended release propranolol 20 mg tablet 20 mg PO BID 01/12/25 01/15/25 01/15/25 History sitagliptin phosphate 50 mg tablet 50 mg PO DAILY 01/12/25 01/15/25 01/14/25 History (Januvia) tizanidine 4 mg tablet 4 mg PO BEDTIME PRN Muscle Spasm 01/12/25 01/15/25 01/14/25 History Allergies Allergy/AdvReac Type Severity Reaction Status Date / Time carisoprodol (From Soma) Allergy Unknown Verified 01/15/25 10:02 duloxetine (From Cymbalta) Allergy upset Verified 01/15/25 10:02 stomach during the time she had covid so she d/c zonisamide (From Zonegran) Allergy Unknown Verified 01/15/25 10:02 Current Medications Generic Name Dose Route Start Last Admin Trade Name Freq PRN Reason Stop Dose Admin Sodium Chloride 1,000 mls @ 15 mls/hr 01/15/25 09:57 01/15/25 10:13 Sodium Chloride 0.9% IV 01/16/25 09:56 15 mls/hr .Q24H PRN Administration COLONOSCOPY FLUIDS PFSH Anesthesia Medical History Borderline personality disorder Smoker Psychiatric care History of COVID-19 Encounter for long-term (current) use of NSAIDs Type 2 diabetes mellitus, without long-term current use of insulin Opioid contract exists Nicotine dependence, cigarettes, uncomplicated Post-traumatic stress disorder, chronic Leg swelling Headache, chronic migraine without aura, with status migrainosus GERD (gastroesophageal reflux disease) KELY (obstructive sleep apnea) Mixed hyperlipidemia Benign essential HTN Spondylosis without myelopathy or radiculopathy, lumbar region termination clerk (current) use of opiate analgesic Continue to monitor use of pain medication Diabetic polyneuropathy associated with type 2 diabetes mellitus RAD (reactive airway disease) with wheezing Fibromyalgia Deaf Surgical History H/O tubal ligation S/P carpal tunnel release BILATERAL S/P bilateral breast reduction S/P hysterectomy Partial S/P skin cancer resection Family History Father CAD (coronary artery disease) Mother Psychiatric illness Family/Other Psychiatric illness MATERNAL AUNT Grandmother Psychiatric illness MATERNAL Other Cancer Diabetes Social History Smoking and tobacco/nicotine status: tobacco/nicotine user, details unknown Second hand smoke exposure: No Alcohol intake: former Year of sobriety/quit date alcohol: 1.5 Substance/Drug Use: never Adopted: No service: No Current occupational exposures/hazards: No Current gender identity: Female Data Anesthesia Cardiac Studies: Stress Echocardiogram 11/20/23
[2025-01-15 11:12] VITALS: BP 108/78; PULSE 70; RESP 18; TEMP 36.1; O2SAT 92
[2025-01-15 11:36] VITALS: BP 117/87; PULSE 74; RESP 18; O2SAT 94
--- NOTE | 2025-01-15 11:50 | ANE.PACU2 ---
Inpatient post-anesthesia follow up: Airway intact: Yes Vital signs: Temperature 97 F Pulse Rate 74 Respiratory Rate 18 Blood Pressure 117/87 Pulse Oximetry 94 Oxygen Delivery Me thod Room Air Oxygen Flow Rate Fraction of Inspir ed Oxygen Hydration adequate: Yes Nausea and vomiting: No Pain level: 1 Mental status: Baseline
== END 2025-01-15 11:52 | disposition home or self-care (01) ==
PROVIDERS: Visit Provider Surgery
PROC: 0DJD8ZZ Inspection of Lower Intestinal Tract, Via Natural or Artificial Opening Endoscopic (ICD-10-PCS; CPT 45378; principal; 2025-01-15 11:30)
DX: Z12.11 Encounter for screening for malignant neoplasm of colon (principal); K62.1 Rectal polyp; D12.5 Benign neoplasm of sigmoid colon; E78.2 Mixed hyperlipidemia; G47.33 Obstructive sleep apnea (adult) (pediatric); K21.9 Gastro-esophageal reflux disease without esophagitis; F17.210 Nicotine dependence, cigarettes, uncomplicated; I10 Essential (primary) hypertension; E11.42 Type 2 diabetes mellitus with diabetic polyneuropathy; M79.7 Fibromyalgia; Z79.899 Other long term (current) drug therapy; Z79.84 Long term (current) use of oral hypoglycemic drugs; Z88.8 Allergy status to other drugs, medicaments and biological substances; K08.89 Other specified disorders of teeth and supporting structures; E66.01 Morbid (severe) obesity due to excess calories; Z68.41 Body mass index [BMI] 40.0-44.9, adult
CPT/HCPCS: 36416; 45380; 82962; 88305; J2704; J7030; J9999

== ENCOUNTER → 2025-01-20 13:21 | Outpatient (BNVA) | payer MEDICARE, SELFPAY | PROVIDERS: Visit Provider Anesthesiology Pain Medicine | DX: M47.816 Spondylosis without myelopathy or radiculopathy, lumbar region (principal); M54.9 Dorsalgia, unspecified; G89.29 Other chronic pain; F17.200 Nicotine dependence, unspecified, uncomplicated; Z01.818 Encounter for other preprocedural examination; E11.9 Type 2 diabetes mellitus without complications | CPT/HCPCS: 36416; 64635; 64636; 82962; J1010; J9999 ==

== ENCOUNTER → 2025-01-23 11:35 | Outpatient (BNVA) | payer MEDICARE, SELFPAY | PROVIDERS: Visit Provider Specialist | DX: G43.711 Chronic migraine without aura, intractable, with status migrainosus (principal) | CPT/HCPCS: 64615; J0585; J9999 ==

== ENCOUNTER → 2025-02-03 08:46 | Outpatient (BNVA) | payer MEDICARE, SELFPAY | PROVIDERS: Visit Provider Surgery | DX: Z09 Encounter for follow-up examination after completed treatment for conditions other than malignant neoplasm (principal) | CPT/HCPCS: 99213 ==

== ENCOUNTER → 2025-03-23 08:31 | Outpatient (BNVA) | payer MEDICARE, SELFPAY | PROVIDERS: Visit Provider Anesthesiology Pain Medicine | DX: M54.9 Dorsalgia, unspecified (principal); G89.29 Other chronic pain; M51.16 Intervertebral disc disorders with radiculopathy, lumbar region; M47.816 Spondylosis without myelopathy or radiculopathy, lumbar region | CPT/HCPCS: 99214 ==

== ENCOUNTER → 2025-04-07 14:17 | Outpatient (BNVA) | payer MEDICARE, SELFPAY | DX: E11.42 Type 2 diabetes mellitus with diabetic polyneuropathy (principal); E78.2 Mixed hyperlipidemia | CPT/HCPCS: 80053; 80061; 83036; 85025 ==

== ENCOUNTER → 2025-04-30 10:52 | Outpatient (BNVA) | payer MEDICARE, SELFPAY | PROVIDERS: Visit Provider Specialist | DX: G43.711 Chronic migraine without aura, intractable, with status migrainosus (principal) | CPT/HCPCS: 64615 ==

== ENCOUNTER → 2025-05-05 11:33 | Outpatient (BNVA) | payer MEDICARE, SELFPAY | DX: Z12.4 Encounter for screening for malignant neoplasm of cervix (principal) | CPT/HCPCS: 87624 ==

== ENCOUNTER → 2025-06-23 14:05 | Outpatient (BNVA) | payer MEDICARE, SELFPAY | PROVIDERS: Visit Provider Internal Medicine | DX: I10 Essential (primary) hypertension (principal); E78.2 Mixed hyperlipidemia; Z87.891 Personal history of nicotine dependence | CPT/HCPCS: 99214 ==

== ENCOUNTER → 2025-08-06 09:01 | Outpatient (BNVA) | payer MEDICARE, SELFPAY | PROVIDERS: Visit Provider Specialist | DX: G43.711 Chronic migraine without aura, intractable, with status migrainosus (principal) | CPT/HCPCS: 64615; J0585; J9999 ==

== ENCOUNTER → 2025-09-28 08:30 | Outpatient (BNVA) | payer MEDICARE, SELFPAY | PROVIDERS: Visit Provider Anesthesiology Pain Medicine | DX: M51.16 Intervertebral disc disorders with radiculopathy, lumbar region (principal); M47.816 Spondylosis without myelopathy or radiculopathy, lumbar region; G89.29 Other chronic pain | CPT/HCPCS: 99214 ==

== ENCOUNTER → 2025-10-05 10:25 | Outpatient (BNVA) | payer MEDICARE, SELFPAY | DX: E11.42 Type 2 diabetes mellitus with diabetic polyneuropathy (principal); E78.2 Mixed hyperlipidemia; R32 Unspecified urinary incontinence | CPT/HCPCS: 80053; 80061; 81000; 83036 ==

== ENCOUNTER 2025-10-14 10:46 | Outpatient (CLI) | payer MEDICARE, SELFPAY ==
--- NOTE | 2025-10-14 10:40 | MM_ITS ---
WS: [id number] BILATERAL 3D TOMOSYNTHESIS DIGITAL SCREENING MAMMOGRAPHY WITH CAD CLINICAL INFORMATION: screening HISTORY: Screening mammogram. History of breast reduction COMPARISON: 2023 TECHNIQUE: Bilateral CC and MLO views. FINDINGS: Scattered fibroglandular densities bilaterally. No suspicious focal mass, asymmetry, calcifications, or architectural distortion. No evidence of malignancy. Incidental punctate calcifications RIGHT breast MM/MM scr BI tomosynthesis [id number] IMPRESSION: DENSITY: There are scattered areas of fibroglandular density. BI-RADS: 2 - Benign. FOLLOW UP: 1 Year Follow-up Recommend return to annual screening mammography.
== END 2025-10-14 10:47 | disposition home or self-care (01) ==
LOC: RAD 10:47
DX: Z12.31 Encounter for screening mammogram for malignant neoplasm of breast (principal); R92.323 Mammographic fibroglandular density, bilateral breasts; R92.1 Mammographic calcification found on diagnostic imaging of breast
CPT/HCPCS: 77063; 77067